=== PATIENT | female | born 1970 | race Hispanic/Latino ===

== ENCOUNTER → 2023-01-27 | Outpatient (CLI) | payer OTHER | END | disposition home or self-care (01) | LOC: RAH 09:08 | PROVIDERS: ATTEND Family Medicine | DX: Z12.31 Encounter for screening mammogram for malignant neoplasm of breast (principal) | CPT/HCPCS: 77067 ==

== ENCOUNTER 2023-09-11 06:10 | Observation (INO) | payer OTHER ==
[2023-09-07 11:33] LABS: BASOPHILS # (AUTO) 0.04 K/uL (0.00-0.20); BASOPHILS % (AUTO) 0.5 % (0.0-5.0); EOSINOPHILS # (AUTO) 0.14 K/uL (0.00-0.70); EOSINOPHILS % (AUTO) 1.8 % (0.0-8.0); IMMATURE GRANULOCYTE ABSOLUTE 0.02 K/uL (0-1); LYMPHOCYTES # (AUTO) 1.9 K/uL (1.0-4.8); LYMPHOCYTES % (AUTO) 24.2 % (21.0-51.0); MEAN CORPUSCULAR HEMOGLOBIN 30.6 pg (27.0-33.0); MEAN CORPUSCULAR HGB CONC 32.3 g/dL (32.0-36.0); MONOCYTES # (AUTO) 0.6 K/uL (0.1-1.0); NEUTROPHILS # (AUTO) 5.2 K/uL (1.8-7.7); NEUTROPHILS % (AUTO) 65.2 % (40.0-77.0); PLATELET COUNT (AUTO) 370 K/uL (130-400); RED BLOOD CELL COUNT(AUTO) 4.21 MIL/uL (4.00-5.50); RED CELL DISTRIBUTION WIDTH 14.5 % (11.0-15.5)
[2023-09-07 11:43] LABS: INR <= 0.93 (0.85-1.15); PROTHROMBIN TIME 10.2 SEC (9.6-11.6)
[2023-09-07 11:44] LABS: ALBUMIN 3.7 g/dL (3.5-5.0); CREATININE 0.8 mg/dL (0.5-1.0); PARTIAL THROMBOPLASTIN TIME 28.8 SEC (26.3-35.5); POTASSIUM 4.1 mmol/L (3.5-5.1)
[2023-09-07 11:50] VITALS: BP 139/80; PULSE 66; RESP 18
[2023-09-07 14:09] LABS: ADD UA MICROSCOPIC YES; APPEARANCE,URINE CLEAR (CLEAR); BILIRUBIN,URINE NEGATIVE (NEGATIVE); COLOR,URINE LIGHT-YELLOW (YELLOW); GLUCOSE, URINE (UA) NEGATIVE (NEGATIVE); KETONES,URINE NEGATIVE (NEGATIVE); LEUKOCYTE ESTERASE ,URINE NEGATIVE Leu/uL (NEGATIVE); NITRATE,URINE NEGATIVE (NEGATIVE); OCCULT BLOOD,URINE MODERATE (NEGATIVE); PH,URINE 5.5 (5.0-8.0); PROTEIN,URINE NEGATIVE (NEGATIVE); UROBILINOGEN,URINE 0.2 mg/dL (0.2-1.0)
[2023-09-07 14:11] LABS: BACTERIA,URINE RARE /HPF (None Seen); MUCUS,URINE RARE LPF (None Seen); SQUAMOUS EPITHELIAL CELL,UR RARE /HPF (0-2)
[~2023-09-11] VITALS: Ht 157.5 cm; Wt 87.3 kg
[2023-09-11] VITALS (27 sets, daily range): BP systolic 104–149; BP diastolic 54–98; PULSE 59–110; RESP 13–19; O2SAT 98
[~2023-09-11 06:10] MED LIST: ACET-2743 PO; ALBUTEROL IH; CALCIUM PO; MELO-106 PO; VITAMIN D3 PO
[2023-09-11] MEDS ORDERED: PHENYLEPHRINE HCL 10 MG/ML 1ML VIAL IV ONE (06:49)
[2023-09-11] MEDS ORDERED: LIDOCAINE PF 100MG/5ML (2%) SYRINGE 5ML ONE (06:52)
[2023-09-11] MEDS ORDERED: ONDANSETRON 4MG INJ ONE (06:52)
[2023-09-11] MEDS ORDERED: ROCURONIUM BROMIDE 10MG/1ML 5ML VL ONE ×2 (06:53→09:18)
[2023-09-11] MEDS ORDERED: PROPOFOL 10 MG/ML 20ML VIAL IV ONE (06:53)
[2023-09-11] MEDS ORDERED: FENTANYL CITRATE PF 50 MCG/1 ML 5ML AMP IV ONE (06:53)
[2023-09-11] MEDS ORDERED: ROPIVACAINE 0.5% 5MG/ML 30ML ONE (07:02)
[2023-09-11] MEDS: LACTATED RINGERS 1000ML 1,000 ML IV ONE (07:18)
[2023-09-11] MEDS ORDERED: MIDAZOLAM HCL 1 MG/ML 2ML VIAL ONE ×2 (08:19→14:46)
[2023-09-11] MEDS: TRANEXAMIC ACID 1000MG/10ML ONE ×2 (08:56→10:43)
[2023-09-11] MEDS: CEFAZOLIN SODIUM 2 GM VIAL ONE (09:03)
[2023-09-11] MEDS ORDERED: CALCIUM CARB 500MG PO PRN (11:00)
[2023-09-11] MEDS ORDERED: POTASSIUM CHLORIDE 20MEQ/100ML 100 ML IV PRN (11:00)
[2023-09-11] MEDS ORDERED: POTASSIUM CHLORIDE 10% ELIXIR 20 MEQ/15 ML UDCUP PO PRN (11:00)
[2023-09-11] MEDS ORDERED: ONDANSETRON 4MG INJ IVP PRN (11:00)
[2023-09-11] MEDS ORDERED: FERROUS FUMARATE 324 MG TABLET PO PRN (11:00)
[2023-09-11] MEDS ORDERED: DiphenhydrAMINE HCL 50 MG/ML VIAL IVP PRN (11:00)
[2023-09-11] MEDS: ONDANSETRON 4MG INJ ONE (12:13)
[2023-09-11] MEDS: MEPERIDINE-PF 25 MG/ML SYG ONE (12:15)
[2023-09-11] MEDS: KETOROLAC 15MG/ML VIAL (15MG/ML) IV SCH (12:24)
[2023-09-11] MEDS: KETOROLAC 15MG/ML VIAL (15MG/ML) ONE (12:28)
[2023-09-11] MEDS ORDERED: ALBUTEROL IH PRN (13:30)
[2023-09-11] MEDS: HYDROMORPHONE 1 MG INJ ONE (13:32)
[2023-09-11] MEDS: FAMOTIDINE 20MG VIAL IV ONE (13:32)
[2023-09-11] MEDS: 0.9%NACL 1000ML 1,000 ML IV SCH (13:41)
[2023-09-11] MEDS: HYDROCODONE/ACETAMINOPHEN 5/325 MG TAB PO PRN (13:44)
[2023-09-11] MEDS: GABAPENTIN 100 MG CAPSULE PO SCH (13:50)
[2023-09-11] MEDS: CYCLOBENZAPRINE HCL 10 MG TABLET PO PRN (14:17)
[2023-09-11] MEDS ORDERED: KETAMINE 50MG/ML SYRINGE 50 MG/ML DISP.SYRIN ONE (14:46)
[2023-09-11] MEDS: CEFAZOLIN SODIUM 2 GM VIAL IVPB SCH (17:08)
[2023-09-11] MEDS: DOCUSATE SODIUM 100 MG CAP PO SCH (19:40)
[2023-09-12] VITALS (9 sets, daily range): BP systolic 80–119; BP diastolic 51–63; PULSE 92–111; RESP 18; O2SAT 97–100
[2023-09-12 05:23] LABS: HEMATOCRIT 31.9 % (36-48); MEAN CORPUSCULAR HEMOGLOBIN 30.3 pg (27.0-33.0); MEAN CORPUSCULAR HGB CONC 32.6 g/dL (32.0-36.0); RED BLOOD CELL COUNT(AUTO) 3.43 MIL/uL (4.00-5.50); WHITE BLOOD COUNT (AUTO) 10.3 K/uL (4.8-10.8)
[2023-09-12 05:42] LABS: CREATININE 0.8 mg/dL (0.5-1.0); POTASSIUM 3.5 mmol/L (3.5-5.1)
[2023-09-12] MEDS: KCL 20 MEQ ERTAB PO PRN (06:25)
[2023-09-12] MEDS: ASPIRIN 325MG EC TAB PO SCH (08:17)
[2023-09-12] MEDS: POLYETHYLENE GLYCOL 3350 17 GM POWD.PACK PO SCH (08:18)
[2023-09-12] MEDS: MELOXICAM 7.5 MG TABLET PO SCH (08:18)
[2023-09-12] MEDS: TRAMADOL HCL 50 MG TABLET PO PRN (18:06)
[2023-09-12] MEDS: KETOROLAC 15MG/ML VIAL (15MG/ML) IV PRN (19:45)
[2023-09-13 04:44] VITALS: BP 116/68; PULSE 114; RESP 18
[2023-09-13 07:59] VITALS: BP 92/61; PULSE 117; RESP 16
[2023-09-13 08:00] VITALS: O2SAT 97
[2023-09-13 11:50] VITALS: BP 96/48; PULSE 107; RESP 16
[2023-09-13] MEDS ORDERED: CYCL-309 PO (16:50)
[2023-09-13] MEDS ORDERED: DOCU-116 PO (16:50)
[2023-09-13] MEDS ORDERED: ASPI-891 PO (16:50)
[2023-09-13] MEDS ORDERED: HYDR-4060 PO (16:50)
[2023-09-14] MEDS ORDERED: BISACODYL 10 MG SUPP.RECT RC PRN (11:00)
== END 2023-09-13 18:15 | disposition home or self-care (01) ==
LOC: DAH 06:10 → DAHIP 06:11 → 4DH 13:01
PROVIDERS: ADMIT Student in an Organized Health Care Education/Training Program; ATTEND Student in an Organized Health Care Education/Training Program
DX: M16.12 Unilateral primary osteoarthritis, left hip (principal); D62 Acute posthemorrhagic anemia; J45.909 Unspecified asthma, uncomplicated; K21.9 Gastro-esophageal reflux disease without esophagitis; Z88.0 Allergy status to penicillin; Z79.899 Other long term (current) drug therapy
CPT/HCPCS: 82040; 80048 ×2; 84703; 85025; 85610; 85730; 87088; 84134; 86140; 81001; 36415 ×2; 87641; 27130; 64450; 96365; 96366; 96375; 81025; 73503; 73521; 97161; 97530 ×9; 96376 ×2; 85027; 97116 ×4; G0378 ×49; A4663; J7120; J3490 ×5; J3010; J1170; J2001; J2250; J2704; J2405 ×2; J2175; J2795; J1885 ×6; J2371; J0690 ×3; A4649 ×2; G0168; A4930; C1776; A6255; A5120; A4215; A4223; A4222; A4221; J7030